=== PATIENT | male | born 1970 | race Caucasian/White ===

== ENCOUNTER 2017-08-10 15:14 | Emergency (ER) | payer OTHER ==
[~2017-08-10] VITALS: Ht 177.8 cm; Wt 109.8 kg
[~2017-08-10 15:14] MED LIST: AMBIEN PAK10 MG; ASA81 MG; CLONAZEPAM0.5 MG; DIOVAN HCT 160-1 TA1; HYZAAR 100-251 UDTAB; LEXAPRO5 MG; NORVASC5 MG; SLOW FE160 MG
[2017-08-10] MEDS ORDERED: NORVASC2.5 M1 (15:37)
[2017-08-10] MEDS ORDERED: DIOVAN320 MG (15:37)
== END 2017-08-10 17:27 | disposition home or self-care (01) ==
LOC: ER 15:14
DX: J06.9 Acute upper respiratory infection, unspecified (principal)

== ENCOUNTER 2019-08-04 10:21 | Emergency (ER) | payer OTHER ==
[~2019-08-04] VITALS: Ht 177.8 cm; Wt 113.4 kg
[~2019-08-04 10:21] MED LIST changes: +DIOVAN320 MG; +NORVASC2.5 M1
[2019-08-04] MEDS ORDERED: DOXAZOSIN MESYLA2 MG (11:01)
== END 2019-08-04 16:55 | disposition home or self-care (01) ==
LOC: ER 10:21
DX: R07.89 Other chest pain (principal); R42 Dizziness and giddiness

== ENCOUNTER 2019-10-13 09:56 | Emergency (ER) | payer OTHER ==
[~2019-10-13] VITALS: Ht 177.8 cm; Wt 114.3 kg
[~2019-10-13 09:56] MED LIST changes: +DOXAZOSIN MESYLA2 MG
[2019-10-13] MEDS ORDERED: ASPIR 8181 MG PO (10:25)
== END 2019-10-13 15:31 | disposition home or self-care (01) ==
LOC: ER 09:56
DX: B34.9 Viral infection, unspecified (principal); J06.9 Acute upper respiratory infection, unspecified

== ENCOUNTER 2020-05-01 11:48 | Emergency (ER) | payer OTHER ==
[~2020-05-01] VITALS: Ht 177.8 cm; Wt 115.7 kg
[~2020-05-01 11:48] MED LIST changes: +ASPIR 8181 MG PO
[2020-05-01] MEDS ORDERED: TESSALON PERLE100 M1 PO (14:48)
[2020-05-01] MEDS ORDERED: TUSSIN DM SYRU118 ML PO (14:48)
[2020-05-01] MEDS ORDERED: ZITHROMAX500 MG PO (14:48)
== END 2020-05-01 15:17 | disposition home or self-care (01) ==
LOC: ER 11:48
DX: R05 Cough (principal); R06.02 Shortness of breath; Z03.818 Encounter for observation for suspected exposure to other biological agents ruled out

== ENCOUNTER 2021-06-03 08:44 | Emergency (ER) | payer OTHER ==
[~2021-06-03] VITALS: Ht 177.8 cm; Wt 121.1 kg
[~2021-06-03 08:44] MED LIST changes: +TESSALON PERLE100 M1 PO; +TUSSIN DM SYRU118 ML PO; +ZITHROMAX500 MG PO
[2021-06-03] MEDS ORDERED: METOCLOPRAMIDE10 MG PO (12:34)
[2021-06-03] MEDS ORDERED: MEDI-MECLIZINE25 MG PO (12:34)
== END 2021-06-03 13:06 ==
LOC: ER 08:44
DX: H81.12 Benign paroxysmal vertigo, left ear (principal); Z03.818 Encounter for observation for suspected exposure to other biological agents ruled out; I10 Essential (primary) hypertension